=== PATIENT | male | born 1980 | race Caucasian/White ===

== ENCOUNTER 2018-11-24 17:58 | Emergency (ER) | payer OTHER ==
[2018-11-24 18:12] VITALS: BP 141/87
--- NOTE | 2018-11-24 18:26 | ED Physician Documentation ---
General Adult - HISTORIAN Historian: patient - HPI Stated Complaint: Medication refill Chief Complaint: General Adult (Med refill for xanax) Additional Information: Patient is a 38-year-old male that presents to the ER requesting a refill on his xanax. He left home and was traveling and states that he forgot his xanax at home. He has filled several xanax at different places with different providers. I explained that I would not fill the xanax but would prescribe Vistaril. Patient really persistent about the xanax- reiterated multiple times that I would be happy to treat the anxiety but I would not prescribe a controlled s ubstance- he has been stopping along the way to different states filling xanax. Apologized, and asked if he would like the script for Vistaril- he said "no thank you". He asked where the nearest hospital was? I explained [place]. He asked if it was a [place] town- I answered [place]. He stated "I cant go there-they wont give it". Patient behavior is very odd and inappropriate- would suggest "drug seeking behavior". Modifying Factors: Wanting refill on controlled substance - ROS CONST: no problems EYES/ENT: none CVS/RESP: none GI/: none MS/SKIN/LYMPH: none NEURO/PSYCH: headache - PAST HX Past History: other (anxiety) Other History: none Allergies/Adverse Reactions: Allergies Allergy/AdvReac Type Severity Reaction Status Date / Time No Known Allergies Allergy Verified 11/24/18 18:11 Home Medications: Ambulatory Orders Medication Instructions Recorded ALPRAZolam [Xanax] 1.5 tab PO Q6 PRN 11/24/18 - SOCIAL HX Smoking History: non-smoker Alcohol Use: none Drug Use: none - FAMILY HX Family History: No - VITAL SIGNS Vital Signs: Vital Signs Temp Pulse Resp BP Pulse Ox 81 15 141/87 97 11/24/18 18:00 11/24/18 18:00 11/24/18 18:00 11/24/18 18:00 - REVIEWED ASSESSMENTS Nursing Assessment Reviewed: Yes Vitals Reviewed: Yes General Adult Physical Exam - PHYSICAL EXAM GENERAL APPEARANCE: no distress EENT: ISIDRO RESPIRATORY: no resp distress NEURO: oriented X3, CN's nml as tested, motor nml, sensation nml, cognition normal Discharge Clincal Impression: Drug-seeking behavior, Encounter for medication refill Referrals: Primary Doctor,No [Primary Care Provider] - 2 Days Additional Instructions: Cannot refill controlled substance but offered alternative- refused Condition: Good Disposition: 01 HOME, SELF-CARE Decision to Admit: NO Decision Time: 18:35
== END 2018-11-24 18:30 | disposition home or self-care (01) ==
LOC: ED 17:58
DX: Z76.0 Encounter for issue of repeat prescription (principal); Z76.5 Malingerer [conscious simulation]
CPT/HCPCS: 99282